=== PATIENT | female | born 1945 | race Caucasian/White ===

== ENCOUNTER → 2018-06-29 | Outpatient (CLI) | payer MEDICARE, OTHER ==
--- NOTE | 2018-06-29 14:23 | RADIOLOGY REPORT (SQ) ---
EXAM DESCRIPTION: ANKLE LEFT COMPLETE COMPLETED DATE/TIME: 06/29/2018 2:08 pm REASON FOR STUDY: ACUTE LEFT ANKLE PAIN, FALL COMPARISON: None. NUMBER OF VIEWS: Three views left ankle. LIMITATIONS: None. FINDINGS: Osteopenic. Nondisplaced fracture through the distal fibula. A portion of the fracture a ppears to be at the level of the mortise with fracture additionally seen along the tip of the malleol us. Overlying soft tissue swelling. No mortise narrowing. No other fracture. OTHER: No other significant finding. IMPRESSION: Distal fibula intra-articular nondisplaced fracture. TECHNICAL DOCUMENTATION: JOB ID: [id number] Reading location - IP/workstation name: [email or web address]
== END ==
LOC: RAD 13:00
PROVIDERS: ATTEND Pediatrics Neonatal-Perinatal Medicine
DX: M25.572 Pain in left ankle and joints of left foot (principal)